=== PATIENT | male | born 1995 | race Caucasian/White ===

== ENCOUNTER 2020-05-08 16:53 | Outpatient (CLI) | payer BC, SELFPAY | END 2020-05-08 16:54 | disposition home or self-care (01) | LOC: ANHCOVIDVC 16:53 | PROVIDERS: PCP Physician Assistant | DX: Z23 Encounter for immunization (principal) | CPT/HCPCS: 0001A; 91300 ==

== ENCOUNTER 2020-05-29 16:31 | Outpatient (CLI) | payer BC, SELFPAY | END 2020-05-29 16:32 | disposition home or self-care (01) | LOC: ANHCOVIDVC 16:31 | PROVIDERS: PCP Physician Assistant | DX: Z23 Encounter for immunization (principal) | CPT/HCPCS: 0002A; 91300 ==